=== PATIENT | male | born 1960 | race Caucasian/White ===

== ENCOUNTER → 2020-05-14 13:13 | Outpatient (CLI) | payer BC, SELFPAY ==
--- NOTE | 2020-05-14 | DI.ECHO.S_ITS ---
[facility] +---------+ : : [address] [place] : : : : [id number] : : : : Phone: [phone]+ Echocardiogram Report + + :Name: JUS GREEN Study Date: 05/14/2020 Height: 70 in : :[facility] ReadingLocation: Weight: 240 lb : : Gender: Male BSA: 2.3 m2 : :: 1960 Age: 60 yrs BP: 150/84 mmHg: :Reason For Study: DYSPNEA : :Ordering Physician: PARADISE, : :NING Performed By: Roseline Booth : :Referring: NING GHOTRA : + + Interpretation Summary The left ventricle is normal in size. There is mild concentric left ventricular hypertrophy. The ejection fraction is estimated to be 65-70%. No significant diastolic dysfunction. The right ventricle is at the upper limits of normal in size. The right ventricular systolic function is normal. There is mild tricuspid regurgitation. The right ventricular systolic pressure is estimated to be at least 33 mmHg based on an estimated right atrial pressure of 3 mm Hg. Procedure: A two-dimensional transthoracic echocardiogram with color flow and Doppler was performed. The study quality was technically adequate. There is no prior echocardiogram noted for this patient. The patient was in sinus rhythm with heart rates between 66-70 bpm during the exam. Left Ventricle: The left ventricle is normal in size. There is mild concentric left ventricular hypertrophy. There is no thrombus. The ejection fraction is estimated to be 65-70%. There are no focal wall motion abnormalities. No significant diastolic dysfunction. Right Ventricle: The right ventricle is at the upper limits of normal in size. The right ventricular systolic function is normal. Atria: The left atrial size is normal. The right atrium is normal in size. There is no Doppler evidence for an interatrial shunt. Mitral Valve: There is mild mitral annular calcification. There is no mitral regurgitation noted. Aortic Valve: The aortic valve opens well. The aortic valve is trileaflet. The aortic valve is slightly calcified. There is no aortic valve stenosis. No aortic regurgitation is present. Tricuspid Valve: The tricuspid valve is not well visualized, but is grossly normal. There is mild tricuspid regurgitation. The right ventricular systolic pressure is estimated to be at least 33 mmHg based on an estimated right atrial pressure of 3 mm Hg. Pulmonic Valve: The pulmonic valve is not well visualized. There is no pulmonic valvular regurgitation. Great Vessels: The aortic root is normal size. The dimensions of the ascending aorta are normal. The IVC is of normal diameter and collapses greater than 50% with a sniff. This suggests a low right atrial pressure of 3 mm Hg. Pericardium/ Pleura There is no pericardial effusion. There is no pleural effusion. MMode/2D Measurements & Calculations LVIDd: 4.5 cm LVOT diam: 2.1 cm LVIDs: 2.7 cm Ao root diam: 3.2 cm FS: 41.0 % asc Aorta Diam: 3.0 cm EPSS: 0.17 cm Ao Arch Diam (Prox Trans): 2.8 cm IVSd: 1.2 cm LVPWd: 1.2 cm LV dave. diameter/BSA (cm/m^2): 2.0 LV sys. diameter/BSA (cm/m^2): 1.2 LA A2 area: 21.1 cm2 RA long axis: 5.8 cm LA A4 area: 28.2 cm2 RA area: 21.2 cm2 LA length (vol): 6.8 cm RA vol: 65.8 ml LA vol: 74.3 ml RA : 29.2 ml/m2 LA vol index: 32.9 ml/m2 IVC diam: 1.6 cm RVD1 (basal): 4.0 cm TAPSE: 2.3 cm Doppler Measurements & Calculations Ao V2 max: 159.4 cm/sec LVOT Max Dirk: 129.6 cm/sec Ao V2 mean: 101.4 cm/sec LV V1 max P.7 mmHg Ao max P.2 mmHg LV V1 VTI: 23.7 cm Ao mean P.8 mmHg SOM(I,D): 2.8 cm2 Ao V2 VTI: 29.7 cm SOM(V,D): 2.9 cm2 sev ratio: 0.80 SOM indexed to BSA (cm^2/m^2): 1.3 MV E max dirk: 83.7 cm/sec TR max dirk: 277.6 cm/sec MV A max dirk: 73.9 cm/sec TR max P.8 mmHg MV E/A: 1.1 PA V2 max: 115.2 cm/sec Med Peak E' Dirk: 6.8 cm/sec PA V2 mean: 73.4 cm/sec E/E' med: 12.4 PA mean P.6 mmHg Lat Peak E' Dirk: 14.1 cm/sec PA pr(Accel): 24.2 mmHg E/E' lat: 5.9 E/e' average: 9.2 MV dec time: 0.20 [facility] 84.4 ml Reading Physician:06:29 PM
== END ==
PROVIDERS: PCP Internal Medicine; Referring Provider Internal Medicine; Visit Provider Internal Medicine
DX: R06.00 Dyspnea, unspecified (principal); R03.0 Elevated blood-pressure reading, without diagnosis of hypertension; R94.31 Abnormal electrocardiogram [ECG] [EKG]; I07.1 Rheumatic tricuspid insufficiency
CPT/HCPCS: 93306

== ENCOUNTER → 2020-05-18 08:56 | Outpatient (CLI) | payer BC, SELFPAY ==
[2020-05-18 11:20] LABS: COVID19 -Nasal RAPID Negative (Negative)
== END ==
PROVIDERS: PCP Internal Medicine; Visit Provider Physician Assistant
DX: Z01.812 Encounter for preprocedural laboratory examination (principal); Z20.822 Contact with and (suspected) exposure to COVID-19
CPT/HCPCS: 87635

== ENCOUNTER 2020-05-20 09:17 | Day surgery (SDC) | payer BC, SELFPAY ==
[2020-05-20] VITALS (7 sets, daily range): BP systolic 122–145; BP diastolic 80–91; PULSE 66–86; RESP 12–21; TEMP 36.5–37.4; O2SAT 91–97; BMI 33.7
--- NOTE | 2020-05-20 | PATH_ITS ---
[facility] Accession Number: [id number] . 01 Material submitted: . rectum - RECTAL POLYP . 01 Clinical history: . SDC . 02 Diagnosis: Rectum, Polyp, Biopsy: Tubular adenoma. MRV 05/25/2020 1448 Local . 02 Electronically signed: . Idania Espinoza MD, Pathologist NPI- [id number] . 01 Gross description: . The specimen is received in formalin, labeled rectal polyp and consists of a 0.5 x 0.5 x 0.5 cm eddy-pink polyp. The margin is inked blue. The polyp is bisected and entirely submitted in cassette A1. ([id number]) /MRV 05/21/2020 1417 Local . 02 Pathologist provided ICD-10: D12.8 . 02 CPT . 277122 Performed at: 01 [facility] [address] [id number] MD Darryl Ortega MD Phone: [phone] Performed at: [facility] [address] [place], [place] [id number] MD Idania Espinoza MD Phone: [phone]
[2020-05-20] MEDS: SODIUM CHLORIDE 0.9% 1,000 ML 100 ML IV (09:50)
--- NOTE | 2020-05-20 10:05 | PM.HP.1 ---
History of Present Illness History of Present Illness Date Patient Seen: 05/20/20 Chief complaint: SDC Narrative: First screening colonoscopy. Brother with history of colon polyps Patient History Family & Social History Social History: household members spouse Tobacco & Substance use: Smoking Status Never smoker alcohol intake current alcohol intake frequency a few times a week Substance Use Type does not use Meds Home Medications and Allergies Home Medications Medication Instructions Recorded Confirmed Type No Known Home Medications 05/20/20 05/20/20 History Allergies Allergy/AdvReac Type Severity Reaction Status Date / Time No Known Drug Allergies Allergy Verified 05/20/20 09:32 Exam Vital Signs (past 8 hours): - 05/20/20 09:43 Temperature 98.0 F Pulse Rate 86 Respiratory Rate 12 Blood Pressure 145/91 H Pulse Oximetry 97 Oxygen Delivery Method Room Air Narrative Exam Narrative: Oropharynx free of lesions Chest clear to auscultation percussion Cardiac exam reveals no S3 or murmur Assessment & Plan Assessment & Plan narrative: First screening colonoscopy with family history of colon polyps. Risks, benefits, alternatives have been explained.
--- NOTE | 2020-05-20 10:06 | PM.OP.ENDO ---
Operative Date/Time/Diagnoses Date of procedure: 05/20/20 Pre-op diagnosis: See indication and findings Procedure & Clinicians Study performed: Colonoscopy Same procedure as scheduled: Yes Indications: For screening colonoscopy. Family history of her to remember with colon polyps Surgeon: Song Schaffer Procedure Notes Procedure in detail: After informed consent was obtained the patient was placed in left lateral decubitus position. The video colonoscope was introduced the rectum and slowly advanced to the cecum. Preparation was good. On slow withdrawal mucosa was carefully examined. The scope was removed. The patient tolerated procedure well. Blood loss none Complications none Sedation Total sedation time 22 minutes Fentanyl 100 micro g versed 6 mg IV titration Findings 1. 1.2 cm semi sessile lesion in the rectum. This was hot snared and removed completely. 2. Otherwise negative colonoscopy to cecum Patient will need follow-up colonoscopy in 3-7 years depending on pathology.
[2020-05-20] MEDS: fentaNYL 250 MCG/5 ML INJ IV (11:22)
[2020-05-20] MEDS: MIDAZOLAM 5 MG/5 ML VIAL IV (11:22)
== END 2020-05-20 12:20 | disposition home or self-care (01) ==
PROVIDERS: PCP Internal Medicine; Referring Provider Internal Medicine Gastroenterology; Visit Provider Internal Medicine Gastroenterology
PROC: 0DJD8ZZ Inspection of Lower Intestinal Tract, Via Natural or Artificial Opening Endoscopic (ICD-10-PCS; CPT 45378; principal; 2020-05-20 11:00)
DX: D12.8 Benign neoplasm of rectum (principal); Z12.11 Encounter for screening for malignant neoplasm of colon
CPT/HCPCS: 45385; J2250; J3010